=== PATIENT | male | born 2000 | race Caucasian/White ===

== ENCOUNTER 2020-06-20 08:42 | Emergency (ER) | payer SELFPAY ==
--- NOTE | 2020-06-20 09:15 | EDM.PDOC ---
ED HPI GENERAL MEDICAL PROBLEM - General Chief Complaint: ENT Problem Stated Complaint: DENTAL COMPLAINT Time Seen by Provider: 06/20/20 09:11 Source of Information: Reports: Patient, RN Notes Reviewed - History of Present Illness INITIAL COMMENTS - FREE TEXT/NARRATIVE: 20 Yr old male comes in with dental pain. He states he his L upper wisdom tooth has been very slowly "coming in" over the past 5 yrs. He given him minor discomfort at times in the past. Has now had quite severe pain for the last 2 days, sensation of some swelling around the gum. No fever or chills or other dental pain. Left Pain Score (Numeric/FACES): 7 - Related Data Allergies Allergy/AdvReac Type Severity Reaction Status Date / Time No Known Allergies Allergy Verified 06/20/20 08:52 Home Meds: Home Meds Acetaminophen/HYDROcodone [[place] 325-5 MG] 1 tab PO Q6H PRN #14 tablet 06/20/20 [Rx] Amoxicillin 500 mg PO Q6HR #30 capsule 06/20/20 [Rx] Past Medical History Other Genitourinary History: bladder infection Musculoskeletal History: Reports: Arthritis, Fracture Other Musculoskeletal History: broken left thumb Psychiatric History: Reports: Anxiety, Depression, Panic Attack - Infectious Disease History Infectious Disease History: Reports: Influenza Social & Family History - Tobacco Use Tobacco Use Status *Q: Current Every Day Tobacco User Years of Tobacco use: 7 Packs/Tins Daily: 1 Second Hand Smoke Exposure: Yes - Caffeine Use Caffeine Use: Reports: Tea - Recreational Drug Use Recreational Drug Use: No ED ROS ENT - Review of Systems Review Of Systems: See Below Constitutional: Denies: Fever, Chills HEENT: Reports: Dental Pain Respiratory: Reports: No Symptoms Cardiovascular: Reports: No Symptoms GI/Abdominal: Reports: No Symptoms Musculoskeletal: Reports: No Symptoms Skin: Reports: No Symptoms Neurological: Reports: No Symptoms ED EXAM, ENT - Physical Exam Exam: See Below General Appearance: Alert, Mild Distress Mouth/Throat: Other (L wisdom tooth not visible, there is some swelling of the gum, proximal molars nontender) Head: No: Facial Swelling, Facial Tenderness Neck: Supple. No: Lymphadenopathy (L), Lymphadenopathy (R) Respiratory/Chest: No Respiratory Distress Neurological: Alert, Oriented Skin: Warm, Dry Course - Vital Signs Last Recorded V/S: Last Vital Signs Temp 97.8 F 06/20/20 08:47 Pulse 60 06/20/20 08:47 Resp 16 06/20/20 08:47 BP 126/72 06/20/20 08:47 Pulse Ox 99 06/20/20 08:47 Departure - Departure Time of Disposition: :29 Disposition: Home, Self-Care 01 Condition: Fair Clinical Impression: Pain, dental - Discharge Information Prescriptions: Amoxicillin 500 mg PO Q6HR #30 capsule Acetaminophen/HYDROcodone [[place] 325-5 MG] 1 tab PO Q6H PRN #14 tablet PRN Reason: Pain Referrals: PCP,None [Primary Care Provider] - Forms: ED Department Discharge Additional Instructions: Amoxicillin 500 mg 4 times daily or 1000 mg 2 times daily for 1 week or until gone. Ibuprofen 600 mg 3 times daily. Tylenol in between doses for extra pain relief or hydrocodone if needed for severe pain. Prescriptions have been sent to [facility] on [address]. See dentist as soon as possible. Sepsis Event Note (ED) - Evaluation Sepsis Screening Result: No Definite Risk
== END 2020-06-20 09:32 | disposition home or self-care (01) ==
LOC: JD.ED 08:42
DX: K08.89 Other specified disorders of teeth and supporting structures (principal); Z72.0 Tobacco use
CPT/HCPCS: 99282; 99283

== ENCOUNTER 2024-01-24 16:05 | Emergency (ER) | payer OTHER ==
[2024-01-24] MEDS ORDERED: Sodium Chloride 0.9% 10 ML Syringe FLUSH PRN (16:26)
[2024-01-24 16:39] LABS: BASOPHILS PERCENT AUTO 0.4 % (0.0-1.0); EOSINOPHILS ABSOLUTE AUTO 0.1 K/mm3 (0.0-0.4); EOSINOPHILS PERCENT AUTO 1.9 % (0.0-6.0); HEMATOCRIT 47.5 % (42.0-52.0); HEMOGLOBIN 16.2 gm/dl (14.0-18.0); IMMATURE GRAN ABSOLUTE AUTO 0.03 K/mm3 (0.00-0.05); IMMATURE GRAN PERCENT AUTO 0.5 % (0.0-0.4); LYMPHOCYTES ABSOLUTE AUTO 2.1 K/mm3 (1.0-4.8); LYMPHOCYTES PERCENT AUTO 36.8 % (24.0-44.0); MEAN CORPUSCULAR HEMOGLOBIN 29.2 pg (28.0-32.0); MEAN CORPUSCULAR HGB CONC 34.1 g/dl (32.0-36.0); MEAN CORPUSCULAR VOLUME 85.7 fl (83.0-99.0); MEAN PLATELET VOLUME 10.7 fl (9.4-12.4); MONOCYTES ABSOLUTE AUTO 0.4 K/mm3 (0.0-0.8); MONOCYTES PERCENT AUTO 6.4 % (0.0-8.0); NEUTROPHILS ABSOLUTE AUTO 3.1 K/mm3 (1.8-7.7); PLATELET COUNT,PLT 195 K/mm3 (150-400); RED BLOOD CELL COUNT 5.54 M/mm3 (4.52-5.90); WHITE BLOOD CELL COUNT,WBC 5.65 K/mm3 (3.9-11.3)
[2024-01-24 17:19] LABS: A/G RATIO 1.5 (1-2); ALANINE AMINOTRANSFERASE,ALT 23 U/L (16-63); ALBUMIN 4.6 g/dl (3.4-5.0); ALKALINE PHOSPHATASE 115 U/L (46-116); ANION GAP 15.4 (5-15); ASPARTATE AMNIOTRANSFERASE,AST 31 U/L (15-37); BILIRUBIN TOTAL 0.8 mg/dL (0.2-1.0); BLOOD UREA NITROGEN,BUN 15 mg/dL (7-18); CALCIUM 9.7 mg/dL (8.5-10.1); CARBON DIOXIDE,CO2 26 mEq/L (21-32); CHLORIDE,CL 107 mEq/L (98-107); CREATININE 1.5 mg/dL (0.7-1.3); ESTIMATED GFR 66 mL/min (>60); GLUCOSE RANDOM 93 mg/dL (70-99); LIPASE 40 U/L (16-77); POTASSIUM,K 3.4 mEq/L (3.5-5.1); PROTEIN TOTAL,TP 7.7 g/dl (6.4-8.2); SODIUM,NA 145 mEq/L (136-145); TROPONIN I HIGH SENSITIVITY 6 pg/mL (<=76)
[2024-01-24] MEDS: Diphtheria,Pertussis(Acell),Tetanus Vaccine 0.5 ML Syringe IM ONE (18:05)
== END 2024-01-24 19:55 | disposition home or self-care (01) ==
LOC: JD.ED 16:05
DX: S22.20XA Unspecified fracture of sternum, initial encounter for closed fracture (principal); M25.561 Pain in right knee; M25.522 Pain in left elbow; R79.89 Other specified abnormal findings of blood chemistry; Z23 Encounter for immunization; V49.40XA Driver injured in collision with unspecified motor vehicles in traffic accident, initial encounter
CPT/HCPCS: 36415; 71045; 71045-26; 71120; 71120-26; 72170; 72170-26; 73080-26-LT; 73080-LT; 73090-26-LT; 73090-LT; 73552-26-LT; 73552-LT; 73560-26-RT; 73560-RT; 73590-26-RT; 73590-RT; 80053; 83690; 84484; 85025; 90471; 90715; 93005; 93010; 99284; 99285-25